=== PATIENT | male | born 1995 | race Caucasian/White ===

== ENCOUNTER 2018-05-22 13:40 | Emergency (ER) | payer SELFPAY ==
[2018-05-22 14:00] LABS: Bilirubin Moderate (Negative); Blood, Urine Large (Negative); Clarity Cloudy (Clear); Glucose, Urine (Dipstick) Negative (Negative); Leukocyte Trace (Negative); Nitrite Negative (Negative); Protein, Urine (Dipstick) > or equal to 300 mg/dL (Neg-Trace); Urobilinogen 0.2 mg/dL (0.2-1.0); pH, Urine 5.5 (5.0-9.0)
[2018-05-22 14:01] LABS: Specific Gravity, Urine 1.031 (1.002-1.036)
[2018-05-22 14:16] LABS: Renal Epithelial 0-3 HPF (0-3); Squamous Epithelial 0-3 HPF (0-3)
[2018-05-22 14:17] LABS: Bacteria/HPF 1+ HPF (None Seen); Other Casts/LPF 0-3 WBC CASTS LPF (0-3 Hyaline); Oval Fat Bodies/HPF Rare HPF (None Seen)
[2018-05-22] MEDS ORDERED: Lidocaine 1% MPF 2 ML VIAL ONE (14:20)
[2018-05-22] MEDS ORDERED: Azithromycin 250 MG TAB ONE (14:20)
[2018-05-22] MEDS ORDERED: cefTRIAXone\\ROCEPHIN 250 MG VIAL ONE (14:20)
[2018-05-25 21:02] LABS: Chlamydia by PCR DETECTED (NotDetected); GC by PCR Not Detected (NotDetected)
== END 2018-05-22 15:14 | disposition home or self-care (01) ==
LOC: SCSER 13:40
DX: N39.0 Urinary tract infection, site not specified (principal)
CPT/HCPCS: 81003; 81015; 87086; 87491; 87591; 96372; J0696

== ENCOUNTER 2018-06-18 13:54 | Emergency (ER) | payer BC, SELFPAY ==
[2018-06-18] MEDS ORDERED: Lidocaine Viscous Sol 2% 15 ml UD Cup ONE (14:13)
[2018-06-18] MEDS ORDERED: Mag-Al Plus 1200 MG/1200 MG/120 MG/30 ML UDCUP ONE (14:13)
[2018-06-18 14:36] LABS: Bilirubin Negative (Negative); Blood, Urine Negative (Negative); Clarity Clear (Clear); Glucose, Urine (Dipstick) Negative (Negative); Leukocyte Negative (Negative); Nitrite Negative (Negative); Protein, Urine (Dipstick) 30 mg/dL (Neg-Trace); Specific Gravity, Urine 1.025 (1.005-1.030); Urobilinogen 0.2 mg/dL (0.2-1.0)
[2018-06-18 14:45] LABS: Bacteria/HPF None Seen HPF (None Seen); Hyaline Casts/LPF 0-3 HYALINE CAST LPF (0-3 Hyaline); RBC/HPF 0-3 HPF (0-3); Squamous Epithelial 0-3 HPF (0-3); WBC/HPF 0-3 HPF (0-3)
[2018-06-18] MEDS ORDERED: Azithromycin 250 MG TAB ONE (14:50)
--- NOTE | 2018-06-18 15:14 | RAD ---
2 VIEWS CHEST: Date: 06/18/18 PROVIDED CLINICAL HISTORY: Chest pain. FINDINGS: Cardiac and mediastinal silhouette is within normal limits. Lungs appear clear. No pleural fluid or p neumothorax apparent. IMPRESSION: No evidence for an acute cardiopulmonary process. POS: [facility]
== END 2018-06-18 15:48 | disposition home or self-care (01) ==
LOC: SCSER 13:54
DX: R30.0 Dysuria (principal)
CPT/HCPCS: 71046; 81003; 81015; 87086; 93005